=== PATIENT | female | born 1985 | race Caucasian/White ===

== ENCOUNTER 2018-11-06 08:40 | Emergency (ER) | payer MEDICAID ==
[~2018-11-06] VITALS: Ht 167.6 cm; Wt 120.5 kg
[2018-11-06 08:43] VITALS: TEMP 97.2
[2018-11-06] MEDS ORDERED: NORCO 325 MG-51 TAB PO (08:56)
[2018-11-06] MEDS ORDERED: PEN-VEE K500 MG PO (08:56)
[2018-11-06 09:04] VITALS: BP 151/96; PULSE 63
== END 2018-11-06 09:07 | disposition home or self-care (01) ==
LOC: COL.ER 08:40
DX: K08.89 Other specified disorders of teeth and supporting structures (principal); I10 Essential (primary) hypertension; F17.210 Nicotine dependence, cigarettes, uncomplicated; Z90.49 Acquired absence of other specified parts of digestive tract

== ENCOUNTER → 2020-03-20 | Outpatient (CLI) | payer OTHER ==
[~2020-03-20] MED LIST: NORCO 325 MG-51 TAB PO; PEN-VEE K500 MG PO
== END ==
LOC: COL.RAD 07:50
DX: M25.512 Pain in left shoulder (principal); R26.89 Other abnormalities of gait and mobility

== ENCOUNTER → 2020-03-22 | Outpatient (CLI) | payer OTHER | LOC: COL.RAD 12:20 | DX: M75.52 Bursitis of left shoulder (principal); M75.102 Unspecified rotator cuff tear or rupture of left shoulder, not specified as traumatic ==